=== PATIENT | female | born 2000 | race Caucasian/White ===

== ENCOUNTER 2020-03-27 17:17 | Emergency (ER) | payer OTHER ==
[~2020-03-27] VITALS: Ht 160 cm; Wt 52.2 kg
[2020-03-27] MEDS ORDERED: ONDANSETRON HCL4 M2 PO (17:52)
[2020-03-27 18:15] VITALS: BP 128/78
== END 2020-03-27 18:16 | disposition home or self-care (01) ==
LOC: M.ERS 17:17
DX: B34.9 Viral infection, unspecified (principal); Z20.828 Contact with and (suspected) exposure to other viral communicable diseases